=== PATIENT | female | born 1990 | race Caucasian/White ===

== ENCOUNTER → 2018-07-10 15:01 | Outpatient (CLI) | payer OTHER ==
[2015-09-14 06:37] VITALS: BMI 23.6
[~2018-07-10 15:01] MED LIST: FERROUS SULFAT325 MG PO; IBUPROFEN600 MG PO; PERCOCET 5-3251 TAB PO; PHENERGAN25 M1 PO; PRENATAL COMPLE1 TAB PO; PROMETRIUM100 MG PO; ZOFRAN4 MG PO
== END | disposition home or self-care (01) ==
LOC: D.LDO 15:01
DX: O26.891 Other specified pregnancy related conditions, first trimester (principal); Z3A.10 10 weeks gestation of pregnancy

== ENCOUNTER 2018-07-10 16:44 | Emergency (ER) | payer OTHER ==
[~2018-07-10] VITALS: Ht 154.9 cm; Wt 53.4 kg
[2018-07-10 16:50] VITALS: Ht 154.9 cm; Wt 53.4 kg
[2018-07-10] MEDS ORDERED: ZOFRAN4 MG PO (16:51)
[2018-07-10 18:15] VITALS: BP 121/84
== END 2018-07-10 18:17 | disposition home or self-care (01) ==
LOC: D.ER 16:44
DX: O26.899 Other specified pregnancy related conditions, unspecified trimester (principal); Z3A.00 Weeks of gestation of pregnancy not specified; G24.02 Drug induced acute dystonia; T43.3X5A Adverse effect of phenothiazine antipsychotics and neuroleptics, initial encounter; Y92.019 Unspecified place in single-family (private) house as the place of occurrence of the external cause

== ENCOUNTER 2018-08-11 11:49 | Inpatient (IN) | payer MEDICAID ==
[~2018-08-11] VITALS: Ht 154.9 cm; Wt 49.5 kg
[2018-08-11 12:40] LABS: APPEARANCE CLOUDY (CLEAR); BILIRUBIN NEGATIVE (NEGATIVE); COLOR YELLOW (YELLOW); GLUCOSE 50 mg/dL (NEGATIVE); KETONE MODERATE mg/dL (NEGATIVE); NITRITE POSITIVE (NEGATIVE); PROTEIN 1+ mg/dL (NEGATIVE); UROBILINOGEN NORMAL (NORMAL)
[2018-08-11 12:42] LABS: BACTERIA MODERATE /hpf (NONE SEEN); EPITHELIAL CELLS 0-5 /hpf (0-5); MUCUS <1+ /lpf (NONE SEEN); RED CELLS - URINE 0-5 /hpf (0-5)
[2018-08-11 13:07] LABS: BASOPHILS 0.3 % (0-2); EOSINOPHILS 1.9 % (0-7); HEMATOCRIT 32.3 % (36.0-48.0); HEMOGLOBIN 11.3 g/dL (12-16); IMMATURE GRANULOCYTES 0.1 % (0-5); LYMPHOCYTES 21.2 % (15-50); MCH 31.2 pg (26.0-34.0); MCV 89.2 fL (80.0-100.0); MEAN PLATELET VOLUME 9.8 fL (7.4-10.4); MONOCYTES 5.9 % (2-11); NEUTROPHILS 70.6 % (40-80); PLATELET COUNT 211 10x3/uL (130-400); RBC 3.62 10x6/uL (4.00-5.40); RDW 12.7 % (11.5-14.5); WBC 7.3 10x3/uL (4.8-10.8)
[2018-08-11 13:20] LABS: ALBUMIN 3.3 g/dL (3.4-5.0); ALKALINE PHOSPHATASE 61 U/L (46-116); ALT (SGPT) 24 U/L (10-68); BILIRUBIN - TOTAL 0.25 mg/dL (0.2-1.3); CALC OSMOLALITY 269 mosm/kg (275-300); CALCIUM 8.8 mg/dL (8.5-10.1); CARBON DIOXIDE 22.6 mmol/L (21.0-32.0); CHLORIDE - SERUM 102 mmol/L (98-107); CREATININE - SERUM 0.6 mg/dL (0.6-1.3); GLUCOSE 71 mg/dL (74-106); POTASSIUM - SERUM 3.5 mmol/L (3.5-5.1); PROTEIN - SERUM 7.1 g/dL (6.4-8.2); SODIUM 137 mmol/L (136-145); UREA NITROGEN 6 mg/dL (7-18); eGFR NON AFRICAN AMERICAN > 90 mL/min (90-120)
[2018-08-11 17:43] LABS: APPEARANCE CLEAR (CLEAR); BILIRUBIN NEGATIVE (NEGATIVE); COLOR YELLOW (YELLOW); GLUCOSE 1000 mg/dL (NEGATIVE); KETONE LARGE mg/dL (NEGATIVE); NITRITE POSITIVE (NEGATIVE); PROTEIN TRACE mg/dL (NEGATIVE); UROBILINOGEN NORMAL (NORMAL)
[2018-08-11 17:50] LABS: BACTERIA MANY /hpf (NONE SEEN); EPITHELIAL CELLS 0-5 /hpf (0-5)
[2018-08-11 21:44] LABS: COLOR YELLOW (YELLOW)
[2018-08-11 21:45] LABS: APPEARANCE CLOUDY (CLEAR); BILIRUBIN NEGATIVE (NEGATIVE); GLUCOSE 1000 mg/dL (NEGATIVE); KETONE SMALL mg/dL (NEGATIVE); NITRITE NEGATIVE (NEGATIVE); PROTEIN NEGATIVE (NEGATIVE); SPECIFIC GRAVITY 1.015 (1.005-1.020); UROBILINOGEN NORMAL (NORMAL)
[2018-08-11 21:49] LABS: BACTERIA MANY /hpf (NONE SEEN); RED CELLS - URINE 0-5 /hpf (0-5); WHITE CELLS - URINE 0-5 /hpf (0-5)
[2018-08-12 12:51] LABS: APPEARANCE CLEAR (CLEAR); BILIRUBIN NEGATIVE (NEGATIVE); COLOR STRAW (YELLOW); GLUCOSE NEGATIVE (NEGATIVE); KETONE NEGATIVE (NEGATIVE); NITRITE NEGATIVE (NEGATIVE); PROTEIN NEGATIVE (NEGATIVE); SPECIFIC GRAVITY 1.005 (1.005-1.020); UROBILINOGEN NORMAL (NORMAL)
[2018-08-12 18:22] LABS: APPEARANCE CLEAR (CLEAR); BILIRUBIN NEGATIVE (NEGATIVE); COLOR YELLOW (YELLOW); GLUCOSE NEGATIVE (NEGATIVE); KETONE NEGATIVE (NEGATIVE); NITRITE NEGATIVE (NEGATIVE); PROTEIN NEGATIVE (NEGATIVE); UROBILINOGEN NORMAL (NORMAL)
--- NOTE | 2018-08-12 20:20 | NUR ---
RECEIVED SHIFT REPORT
[2018-08-12 20:58] VITALS: BP 108/66; Ht 154.9 cm; Wt 49.5 kg
--- NOTE | 2018-08-12 20:58 | NUR ---
ADMISSION ASSESSMENT, HISTORY AND MED REC DONE, IV IN RIGHT AC INTACT WITH NO REDNESS OR EDEMA INFUSING VIA PUMP D5NS AT 150 ML/HR PER MD ORDERS, SEE EMAR, PT REPORTS FLATUS, NO BM AND VOIDING WITH NO DIFFICULTY, PT DENIES ANY EMESIS AT THIS TIME, DENIES PAIN, STATES "I JUST WANT TO GET SOME SLEEP TONIGHT", INFORMED PT THAT I WILL ADM AMBIEN PER MD ORDERS FOR SLEEP, PT VERBALIZES UNDERSANDING, EMPTIED 1100 MLS OF [place] COLORED URINE FROM [facility], PT REPORTS VOIDS X 5-6, PT DENIES ANY NEEDS AT THIS TIME, S/O AT BEDSIDE
[2018-08-12] MEDS ORDERED: UNISOM SLEEP AI25 MG PO (21:17)
--- NOTE | 2018-08-12 21:38 | NUR ---
ADM WALKER PER MD ORDERS, SEE EMAR
--- NOTE | 2018-08-12 22:23 | NUR ---
PT RESTING WITH EYES CLOSED, AROUSES TO SOFT VERBAL STIMULATION, ADM DRAMAMINE AND VIT B6 PER MD ORDERS, SEE EMAR, PT DENIES NEEDS AT THIS TIME, S/O AT BEDSIDE
--- NOTE | 2018-08-12 23:21 | NUR ---
CHU BOOTH RN SPOKE TO DR MOSER REGARDING PTS DIET, ORDERS TO CONTINUE BRAT DIET
[2018-08-13 00:20] VITALS: BP 100/64
--- NOTE | 2018-08-13 00:20 | NUR ---
PT RESTING WITH EYES CLOSED, AROUSES TO SOFT VERBAL STIMULATION, VS OBTAINED, ADM BENADRYL AND ZOFRAN PO, HUNG NEW BAG OF D5NS VIA PUMP INFUSING AT 150 ML/HR PER MD ORDERS, SEE EMAR, PT REPORTS FEELING "EH", DENIES NEEDS OR PAIN AT THIS TIME, BED IN LOW POSITION, SIDE RAILS X 2, CALL LIGHT IN REACH, S/O ASLEEP ON COUCH
--- NOTE | 2018-08-13 01:24 | NUR ---
SHIFT REPORT TO FRANKLYN GRIMES RN
--- NOTE | 2018-08-13 02:03 | NUR ---
PT ASLEEP. NOT AWAKENED. RESPS EVEN AND UNLABORED. Bradley GRIMES RN
[2018-08-13 04:26] VITALS: BP 96/61
--- NOTE | 2018-08-13 04:28 | NUR ---
VITAMIN B6, DRAMAMINE, AND ZOFRAN GIVEN AT [facility]. VSS, IV SITE REMIANS PATENT AT THIS TIME. NO ACUTE DISTRESS NOTED. Bradley GRIMES RN
--- NOTE | 2018-08-13 06:14 | NUR ---
PT ;EEP. EASILY AWAKENED AT THIS TIME. GIVEN ORAL BENADRYL AT THIS TIME. NO ACUTE DISTRESS NOTED. Bradley GRIMES RN
[2018-08-13] MEDS ORDERED: ZOFRAN ODT4 MG/UDTAB PO (07:53)
[2018-08-13] MEDS ORDERED: VITAMIN B-6100 MG PO (07:54)
[2018-08-13] MEDS ORDERED: BENADRYL25 MG PO (07:56)
[2018-08-13] MEDS ORDERED: DRIMINATE50 MG PO (08:00)
== END 2018-08-13 11:05 | disposition home or self-care (01) | DRG 833 ==
LOC: D.LDO 11:49 → D.LD 19:49 → D.LDO 08-12 20:31 → D.LD 08-12 20:33
PROVIDERS: ADMIT Obstetrics & Gynecology; ATTEND Obstetrics & Gynecology
DX: O21.0 Mild hyperemesis gravidarum (principal); Z3A.15 15 weeks gestation of pregnancy